=== PATIENT | female | born 1955 | race Caucasian/White ===

== ENCOUNTER 2019-05-07 21:09 | Inpatient (IN) | payer OTHER ==
[~2019-05-07] VITALS: Ht 160 cm; Wt 64.4 kg
[~2019-05-07 21:09] MED LIST: HYDROCODONE-AP1 EAC6 PO; TORADOL 10 MG T10 MG PO; UNICOMPLEX M TA1 TA1 PO; VALIUM5 MG PO; ZOFRAN4 MG PO
[2019-05-07 21:10] VITALS: BP 147/78
[2019-05-07] MEDS ORDERED: ZANAFLEX4 MG PO (21:12)
[2019-05-07] MEDS ORDERED: ZYRTEC10 M4 PO (21:13)
[2019-05-07 21:48] LABS: ABSOLUTE BASOPHILS 0.1 thou/uL (0.0-0.2); ABSOLUTE LYMPHOCYTES 2.1 thou/uL (0.8-5.3); ABSOLUTE MONOCYTES 0.8 thou/uL (0.0-1.2); BASOPHILS 1.3 %; EOSINOPHILS 0.6 %; HEMATOCRIT 38.6 % (37.0-47.0); HEMOGLOBIN 13.5 gm/dL (12.0-15.0); LYMPHOCYTES 29.9 %; MCH 31.3 pg (26.0-34.0); MCHC 34.9 g/dL (28.0-37.0); MCV 89.8 fL (80.0-100.0); MONOCYTES 11.8 %; MPV 8.2 fl. (7.2-11.1); NUCLEATED RBCS 0 /100WBC; PLATELET COUNT* 319 thou/uL (150-400); POLYS 56.4 %; RDW-CV 12.4 % (10.5-14.5); WBC 7.2 thou/uL (4.0-11.0)
[2019-05-07 21:51] LABS: CALCIUM 9.2 mg/dL (8.5-10.1); CREATININE 0.8 mg/dL (0.6-1.3); POTASSIUM 3.2 mmol/L (3.5-5.1)
[2019-05-07 21:56] LABS: TOTAL BILIRUBIN 0.7 mg/dL (<0.1-1.0); TOTAL PROTEIN 7.4 g/dL (6.4-8.2)
[2019-05-07 23:01] LABS: URINE BILIRUBIN NEGATIVE (Negative); URINE BLOOD NEGATIVE (Negative); URINE CLARITY CLEAR; URINE COLOR STRAW; URINE GLUCOSE-RANDOM NEGATIVE (Negative); URINE KETONES 2+ (Negative); URINE LEUKOCYTES-REFLEX NEGATIVE (Negative); URINE NITRITE-REFLEX NEGATIVE (Negative); URINE PROTEIN NEGATIVE (Negative); URINE UROBILINOGEN 0.2 E.U./dl (0.2-1.0)
[2019-05-08 01:00] VITALS: BP 128/63
[2019-05-08 01:25] VITALS: BP 121/70
--- NOTE | 2019-05-08 03:14 | NUR ---
PT ADMITTED TO ROOM 208 FROM ER. ADMISSION HX ADN ASSESSMENT DOCUMENTED. PT ORIENTED TO ROOM AND CALL LIGHT. WILL CONTINUE TO MONITOR.
--- NOTE | 2019-05-08 06:27 | NUR ---
PT ALERT AND ORIENTED. VSS ON RA. ADMISSION ASSESSMENT DOCUMENTED. PT ORIENTED TO ROOM AND CALL LIGHT. LFA NS @ 100ML/HR. PT ON STANDBY ASSIST. CALL LIGHT WITHIN REACH. HOURLY ROUNDINGS MADE. WILL CONTINUE PLAN OF CARE.
[2019-05-08 08:00] VITALS: BP 124/56
[2019-05-08 08:35] LABS: CALCIUM 9.2 mg/dL (8.5-10.1); CREATININE 0.8 mg/dL (0.6-1.3); MAGNESIUM 1.8 mg/dL (1.8-2.4)
[2019-05-08 08:39] LABS: POTASSIUM 4.2 mmol/L (3.5-5.1)
[2019-05-08 11:42] VITALS: BP 124/56
--- NOTE | 2019-05-08 13:27 | NUR ---
DISCHARGE NOTE - REVIEWED INSTRUCTIONS WITH PT AND SPOUSE. NO QUESTIONS. IV REMOVED WITHOUT DIFFICULTY. ALL BELONGINGS SENT WITH PT.
== END 2019-05-08 13:28 | disposition home or self-care (01) | DRG 641 ==
LOC: M.ERS 21:09 → M.TBA-ER 22:59 → M.2W 23:16 → M.TBA-ER 23:16 → M.2W 05-08 01:12
PROVIDERS: Emergency Medicine; ADMIT Internal Medicine
DX: E87.1 Hypo-osmolality and hyponatremia (principal); E87.6 Hypokalemia; E83.42 Hypomagnesemia; E86.0 Dehydration; Z88.2 Allergy status to sulfonamides